=== PATIENT | female | born 1960 | race African-American/Black ===

== ENCOUNTER 2017-11-21 06:37 | Inpatient (IN) | payer OTHER ==
[2017-11-18 09:15] VITALS: BMI 38.4
[2017-11-21] MEDS ORDERED: CEFAZOLIN/Water 2 GM/20 ML SYRINGE ONE (07:57)
[2017-11-21 08:28] LABS: Hemoglobin 13.7 g/dL (12.0-16.0); Mean Corpuscular HGB CONC 33.7 g/dL (32.0-36.0); Mean Corpuscular Hemoglobin 29.6 pg (27.0-31.0); Mean Corpuscular Volume 87.8 fL (78.0-98.0); Mean Platelet Volume 7.8 fL (7.4-10.4); Platelet Count 312 thou/uL (130-400); RBC Distribution Width 12.2 % (11.5-14.5); Red Blood Cell (RBC) Count 4.63 mill/uL (4.20-5.40); White Blood Cell (WBC) Count 8.2 thou/uL (4.8-10.8)
[2017-11-21] MEDS ORDERED: Sodium Chloride 0.9% 10 ML ONE (08:39)
[2017-11-21] MEDS ORDERED: Fentanyl 100 MCG/2 ML VIAL ONE ×5 (08:43→10:57)
[2017-11-21 08:44] LABS: Anion Gap 12 mmol/L (10-20); BUN (Urea Nitrogen) 8 mg/dL (9.8-20.1); Calc. Creatinine Clearance 102 mL/min (70-130); Calcium 9.5 mg/dL (7.8-10.44); Carbon Dioxide 27 mmol/L (22-29); Chloride 101 mmol/L (98-107); Estimated GFR-MDRD 79; Glucose 110 mg/dL (70-105); Potassium 3.7 mmol/L (3.5-5.1); Sodium 136 mmol/L (136-145)
[2017-11-21] MEDS ORDERED: Ondansetron HCl/PF 4 MG/2 ML Vial IVP PRN ×2 (09:31→12:32)
[2017-11-21] MEDS ORDERED: Promethazine HCl 25 MG/ML VIAL IM PRN ×2 (09:31→12:29)
[2017-11-21] MEDS ORDERED: Promethazine HCl 25 MG/ML VIAL SLOW IVP PRN (09:31)
--- NOTE | 2017-11-21 10:39 | OP ---
DATE OF PROCEDURE: 11/21/2017 SURGEON: Jordon Steward M.D. ASSISSTANT: None. PROCEDURE: Exploration of spinal fusion C4-C6, anterior cervical discectomy C6-7, interbody arthrode sis, intravertebral biomechanical device, local morselized autograft, demineralized bone matrix, ante rior titanium instrumentation C6-C7. PROCEDURE IN DETAIL: The patient was brought to the operating room and intubated. She was positione d supine with the head in modest extension on a gel-filled donut. Incision was made in the right pre cervical area and dissecting medial to the sternocleidomastoid muscle, identified the previous hardwa re. We explored the C4-C6 region and it did seem to be fused solidly. We seem to have enough room a t the C6 body to perform the procedure without having to remove any hardware. We placed distraction across C6-7 and completely removed the intravertebral disk decompressing the neural elements. The benigno ny endplates were decorticated for the purpose of arthrodesis and appropriately-sized intravertebral biomechanical PEEK device was brought into the field, filled with demineralized bone matrix, local mo rselized autograft, and tapped into place securely at C6-7. Next, an anterior plate was brought into the field and secured to the C6 and C7 using two 14 mm screws at each level. It was challenging to get screws at the C6 level without interfering with the previous hardware, but ultimately, we did see m to achieve successful placement. The wound was then extensively irrigated, immaculate hemostasis w as secured, and the wound was closed in anatomic layers over a drain.
[2017-11-21] MEDS ORDERED: Promethazine HCl 12.5 MG SUPP PR PRN (12:29)
[2017-11-21] MEDS ORDERED: traMADol HCl 50 MG TAB PO PRN ×2 (12:29)
[2017-11-21] MEDS ORDERED: Mag-Al 1200 mg/1200 mg/30 ML UDCUP PO PRN (12:29)
[2017-11-21] MEDS ORDERED: HYDROcodone/Acetaminophen 10/325 mg Tablet PO PRN ×2 (12:29)
[2017-11-21] MEDS ORDERED: tiZANidine HCl 4 MG TAB PO PRN (12:29)
[2017-11-21] MEDS ORDERED: diphenhydrAMINE 25 MG CAP PO PRN (12:29)
[2017-11-21] MEDS ORDERED: Bisacodyl 10 MG SUPP PR PRN (12:29)
[2017-11-21] MEDS ORDERED: Promethazine 25 MG TAB PO PRN (12:29)
[2017-11-21] MEDS ORDERED: Milk Of Magnesia 30 ML UDCUP PO PRN (12:29)
[2017-11-21] MEDS ORDERED: Morphine 4 MG/ML Carpuject SLOW IVP PRN (12:29)
[2017-11-21] MEDS ORDERED: diphenhydrAMINE 50 MG/ML VIAL IVP PRN (12:29)
[2017-11-21] MEDS ORDERED: PROPOFOL 200 MG/20 ML VIAL ONE (14:39)
[2017-11-21] MEDS ORDERED: Ondansetron HCl/PF 4 MG/2 ML Vial ONE (14:39)
[2017-11-21] MEDS ORDERED: Glycopyrrolate 0.2 MG/ML 5 ML SYRINGE ONE (14:39)
[2017-11-21] MEDS ORDERED: Ketorolac Tromethamine 30 MG/ML VIAL ONE (14:39)
[2017-11-21] MEDS ORDERED: Dexamethasone 20 MG/5 ML VIAL ONE (14:39)
[2017-11-21] MEDS ORDERED: Lidocaine 1% PF 5 ML VIAL ONE (14:39)
[2017-11-21] MEDS ORDERED: Esmolol 100 MG/10 ML VIAL ONE (14:39)
[2017-11-21] MEDS: Sodium Chloride 0.9% 1,000 ML IV SCH (15:58)
[2017-11-21] MEDS ORDERED: CEFAZOLIN/Water 2 GM/20 ML SYRINGE SLOW IVP SCH (16:00)
[2017-11-21] MEDS ORDERED: Dextrose 50% Abboject 50 ML SYRINGE SLOW IVP PRN (16:33)
[2017-11-21] MEDS ORDERED: HumaLOG 300 UNITS/3 ML VIAL SC PRN (16:33)
[2017-11-21] MEDS ORDERED: Dextrose 5% in Water 1,000 ML IV PRN (16:33)
[2017-11-21] MEDS ORDERED: hydrALAZINE 20 MG/ML VIAL SLOW IVP PRN (16:33)
--- NOTE | 2017-11-21 16:48 | PDOC.PN ---
- Subjective Encounter Start Date: 11/21/17 Encounter Start Time: 16:47 Pt seen for management of medical comorbidities, including diabetes mellitus type 2. Denies nausea or vomiting. No fevers or chills. No abdo pain. Soreness of surgical site+ - Objective MAR Reviewed: Yes Vital Signs & Weight: Vital Signs (12 hours) Temp Pulse Resp BP Pulse Ox 11/21/17 15:46 97.4 F L 97 16 129/83 94 L 11/21/17 11:17 97.1 F L 83 16 124/89 97 Weight Weight 7.161 oz Result Diagrams: 11/21/17 08:13 11/21/17 08:13 Additional Labs: Labs reviewed by me Phys Exam - Physical Examination Constitutional: NAD HEENT: moist MMs Neck: supple Respiratory: clear to auscultation bilateral Cardiovascular: RRR Gastrointestinal: soft Neurological: moves all 4 limbs Psychiatric: normal affect Deviation from normal: dressing over surgical site, drain Dx/Plan (1) DM2 (diabetes mellitus, type 2) Status: Chronic Comment: resume Amaryl, start accuchecks and insulin scale, start ADA diet (2) HTN (hypertension) Code(s): I10 - ESSENTIAL (PRIMARY) HYPERTENSION Status: Chronic Comment: resume hydrochlorothiazide, monitor vital signs and titrate antihypertensives as needed. PRN IV hydralazine for blood pressure spikes. (3) Dyslipidemia Code(s): E78.5 - HYPERLIPIDEMIA, UNSPECIFIED Status: Chronic Comment: resume statin - Plan * . DVT prophylaxis and pain management per neurosurgery service. Review of Systems - Review of Systems Constitutional: negative: fever, chills, sweats, weakness, malaise Respiratory: negative: Cough, Shortness of Breath, SOB with Excertion, Pleuritic Pain, Wheezing - Medications/Allergies Allergies/Adverse Reactions: Allergies Allergy/AdvReac Type Severity Reaction Status Date / Time No Known Allergies Allergy Verified 11/18/17 09:15 Medications: Current Medications Hydrocodone Bitart/Acetaminophen ([place] 10/325) 1 tab PO Q4H PRN PRN Reason: PAIN (1-3) Hydrocodone Bitart/Acetaminophen ([place] 10/325) 2 tab PO Q4H PRN PRN Reason: PAIN (4-6) Last Admin: 11/21/17 15:56 Dose: 2 tab Al Hydroxide/Mg Hydroxide (Maalox) 30 ml PO Q4H PRN PRN Reason: Heartburn or Indigestion Bisacodyl (Dulcolax) 10 mg ME Q12H PRN PRN Reason: Constipation Cefazolin Sodium (Ancef) 2 gm SLOW IVP Q8H [facility] Stop: 11/22/17 00:01 Last Admin: 11/21/17 16:17 Dose: 2 gm Dextrose/Water (Dextrose 50%) 25 gm SLOW IVP PRN PRN PRN Reason: Hypoglycemia Diphenhydramine HCl (Benadryl) 25 mg PO Q6H PRN PRN Reason: Itching Diphenhydramine HCl (Benadryl) 25 mg IVP Q6H PRN PRN Reason: Itching Glucagon (Glucagon) 1 mg IM PRN PRN PRN Reason: Hypoglycemia Hydralazine HCl (Apresoline) 10 mg SLOW IVP Q6H PRN PRN Reason: SBP Greater Than 170 Sodium Chloride (Normal Saline 0.9%) 1,000 mls @ 75 mls/hr IV .[id number] [facility] Last Admin: 11/21/17 15:58 Dose: Not Given Dextrose/Water (D5w) 1,000 mls @ 0 mls/hr IV .Q0M PRN; As Directed PRN Reason: Hypoglycemia Insulin Human Lispro (Humalog) 0 units SC .MILD SLIDING SCALE PRN PRN Reason: Mild Correctional Scale Magnesium Hydroxide (Milk Of Magnesium) 30 ml PO Q12H PRN PRN Reason: Constipation Morphine Sulfate (Morphine) 2 mg SLOW IVP Q1H PRN PRN Reason: Moderate Breakthrough Pain Last Admin: 11/21/17 14:37 Dose: 2 mg Morphine Sulfate (Morphine) 4 mg SLOW IVP Q1H PRN PRN Reason: Severe Breakthrough Pain Ondansetron HCl (Zofran) 4 mg IVP Q8H PRN PRN Reason: Nausea/Vomiting Promethazine HCl (Phenergan) 12.5 mg IM Q4H PRN PRN Reason: Nausea/Vomiting Promethazine HCl (Phenergan) 12.5 mg PO Q4H PRN PRN Reason: Nausea/Vomiting Promethazine HCl (Phenergan Suppository) 12.5 mg ME Q4H PRN PRN Reason: Nausea/Vomiting Sodium Chloride (Flush - Normal Saline) 10 ml IVF Q12HR [facility] Sodium Chloride (Flush - Normal Saline) 10 ml IVF PRN PRN PRN Reason: Saline Flush Tizanidine HCl (Zanaflex) 4 mg PO Q6H PRN PRN Reason: MUSCLE SPASM Last Admin: 11/21/17 15:56 Dose: 4 mg Tramadol HCl (Ultram) 50 mg PO Q6H PRN PRN Reason: PAIN (1-3) Tramadol HCl (Ultram) 100 mg PO Q6H PRN PRN Reason: PAIN (4-6)
--- NOTE | 2017-11-21 19:54 | EKG ---
Test Reason : PREOP Blood Pressure : / mmHG Vent. Rate : 079 BPM Atrial Rate : 079 BPM P-R Int : 234 ms QRS Dur : 086 ms QT Int : 398 ms P-R-T Axes : 049 014 011 degrees QTc Int : 456 ms Sinus rhythm with 1st degree A-V block Nonspecific ST-T changes No previous ECGs available Confirmed by DR. Paula TORO ([id number]) on 11/21/2017 7:53:42 PM Referred By: MONICA Confirmed By:DR. Paula TORO
[2017-11-21] MEDS ORDERED: Pravastatin Sodium 20 MG TAB PO SCH (21:00)
[2017-11-21] MEDS: CEFAZOLIN/Water 2 GM/20 ML SYRINGE SLOW IVP SCH (23:46)
[2017-11-22] MEDS: Sodium Chloride 0.9% 1,000 ML IV SCH (00:16)
[2017-11-22] MEDS ORDERED: Hydrochlorothiazide 25 MG TAB PO SCH (09:00)
[2017-11-22] MEDS ORDERED: Glimepiride 4 MG TAB PO SCH (09:00)
[2017-11-22] MEDS ORDERED: buPROPion 75 MG TAB PO SCH (09:00)
[2017-11-22] MEDS: CEFAZOLIN/Water 2 GM/20 ML SYRINGE SLOW IVP SCH (09:35)
[2017-11-22 14:46] VITALS: BP 133/87; TEMP 97.4
== END 2017-11-22 14:40 | disposition home or self-care (01) | DRG 30 ==
LOC: SURG A 06:37 → SURG B 11:30 → EDSTATUS 12:30
PROVIDERS: ADMIT Neurological Surgery; ATTEND Neurological Surgery
PROC: 0RT30ZZ Resection of Cervical Vertebral Disc, Open Approach (ICD-10-PCS; principal; 2017-11-21)
PROC: 0RG10A0 Fusion of Cervical Vertebral Joint with Interbody Fusion Device, Anterior Approach, Anterior Column, Open Approach (ICD-10-PCS; 2017-11-21)
DX: M54.12 Radiculopathy, cervical region (principal); E11.9 Type 2 diabetes mellitus without complications; I10 Essential (primary) hypertension; E78.5 Hyperlipidemia, unspecified
CPT/HCPCS: 36415; 36416; 76001; 80048; 85027; 93005; 93010; A4216; C1713; C1776; G8978-GP-CL; G8979-GP-CK; J1100; J1885; J2001; J2270; J2405; J2704; J3010; J3490

== ENCOUNTER 2018-03-20 07:02 | Inpatient (IN) | payer OTHER ==
[2018-03-17 12:14] VITALS: BMI 36.2
[2018-03-20] MEDS ORDERED: CEFAZOLIN 2 GM/50 ML BAG ONE (08:14)
[2018-03-20 08:21] LABS: #Basophils 0.1 thou/uL (0.0-0.2); #Eosinphils 0.1 thou/uL (0.0-0.7); #Lymphocytes 2.9 thou/uL (1.20-3.40); #Monocytes 0.5 thou/uL (0.11-0.59); #Neutrophils 3.4 thou/uL (1.40-6.50); %Basophils 0.8 % (0.0-1.0); %Eosinophils 1.8 % (0.0-10.0); %Lymphocytes 41.7 % (21.0-51.0); %Monocytes 6.5 % (0.0-10.0); %Neutrophils 49.2 % (42.0-75.0); Hemoglobin 13.3 g/dL (12.0-16.0); Mean Corpuscular HGB CONC 31.6 g/dL (32.0-36.0); Mean Corpuscular Hemoglobin 28.1 pg (27.0-31.0); Mean Platelet Volume 9.1 fL (7.4-10.4); Platelet Count 287 thou/uL (130-400); RBC Distribution Width 13.6 % (11.5-14.5); Red Blood Cell (RBC) Count 4.73 mill/uL (4.20-5.40)
[2018-03-20 08:40] LABS: Anion Gap 13 mmol/L (10-20); BUN (Urea Nitrogen) 12 mg/dL (9.8-20.1); Calc. Creatinine Clearance 85 mL/min (70-130); Calcium 9.6 mg/dL (7.8-10.44); Carbon Dioxide 23 mmol/L (22-29); Chloride 107 mmol/L (98-107); Estimated GFR-MDRD 68; Glucose 111 mg/dL (70-105); Potassium 4.2 mmol/L (3.5-5.1); Sodium 139 mmol/L (136-145)
[2018-03-20] MEDS ORDERED: Sodium Chloride 0.9% 10 ML ONE (09:21)
[2018-03-20] MEDS ORDERED: Fentanyl 100 MCG/2 ML VIAL ONE ×6 (10:12→13:14)
[2018-03-20] MEDS ORDERED: Ondansetron HCl/PF 4 MG/2 ML Vial IVP PRN (11:20)
[2018-03-20] MEDS ORDERED: Promethazine HCl 25 MG/ML VIAL IM PRN ×2 (11:20→11:28)
[2018-03-20] MEDS ORDERED: HYDROmorphone 2 MG/ML VIAL SLOW IVP PRN (11:20)
[2018-03-20] MEDS ORDERED: Promethazine HCl 25 MG/ML VIAL SLOW IVP PRN (11:20)
[2018-03-20] MEDS ORDERED: Ondansetron PF 4 MG/2 ML Vial IM PRN (11:28)
[2018-03-20] MEDS ORDERED: Promethazine 25 MG TAB PO PRN (11:28)
[2018-03-20] MEDS ORDERED: Promethazine HCl 12.5 MG SUPP PR PRN (11:28)
[2018-03-20] MEDS ORDERED: Morphine 4 MG/ML VIAL SLOW IVP PRN (11:28)
[2018-03-20] MEDS ORDERED: Milk Of Magnesia 30 ML UDCUP PO PRN (11:28)
[2018-03-20] MEDS ORDERED: tiZANidine HCl 4 MG TAB PO PRN (11:28)
[2018-03-20] MEDS ORDERED: diphenhydrAMINE 25 MG CAP PO PRN (11:28)
[2018-03-20] MEDS ORDERED: Mag-Al 1200 mg/1200 mg/30 ML UDCUP PO PRN (11:28)
[2018-03-20] MEDS ORDERED: diphenhydrAMINE 50 MG/ML VIAL IVP PRN (11:28)
[2018-03-20] MEDS ORDERED: HYDROcodone/Acetaminophen 10/325 mg Tablet PO PRN ×2 (11:28)
[2018-03-20] MEDS ORDERED: hydrALAZINE 20 MG/ML VIAL SLOW IVP SCH (11:30)
[2018-03-20] MEDS ORDERED: HYDROmorphone 2 MG/ML VIAL ONE (11:47)
--- NOTE | 2018-03-20 13:00 | OP ---
DATE OF PROCEDURE: 03/20/2018 SURGEON: Jordon Steward M.D. CHILD WELFARE SPECIALIST: Bandar Houston PA-C. PROCEDURE: Left L5-S1 laminectomy, facetectomy, foraminotomy, interbody arthrodesis, intravertebral biomechanical device, local morselized autograft, demineralized bone matrix, posterior lateral arthro desis, and pedicle screw instrumentation, left L5-S1. PROCEDURE IN DETAIL: The patient was brought into the room and intubated. She was rolled in a prone position on gel-filled chest rolls. Incision made exposing L5 and S1 bilaterally and our level was confirmed by x-ray. We performed left L5-S1 laminectomy, facetectomy, and foraminotomy, completely d ecompressed left L5 and left S1. The disk itself was incised and debrided and the bony endplates dec orticated for the purpose of arthrodesis. An appropriately-sized intravertebral biomechanical PEEK d evice was brought into the field, filled with demineralized bone matrix, local morselized autograft, and tapped into place securely at L5-S1. Next, pedicle screws were placed on the left at L5 and S1 u sing lateral fluoroscopic guidance. A moisés was secured between the screws, connected by nuts, which w ere final tightened. The wound was then extensively irrigated, immaculate hemostasis was secured. A combination of demineralized bone matrix, local morselized autograft was laid over the right laminar and posterolateral surfaces for the purpose of arthrodesis. Vancomycin powder was applied and the w ound was then closed in anatomic layers.
[2018-03-20] MEDS: Ketorolac Tromethamine 30 MG/ML VIAL IVP SCH ×2 (14:51→18:04)
[2018-03-20] MEDS: Sodium Chloride 0.9% 1,000 ML IV SCH ×2 (14:51→20:18)
--- NOTE | 2018-03-20 15:00 | EKG ---
Test Reason : PREOP Blood Pressure : / mmHG Vent. Rate : 090 BPM Atrial Rate : 090 BPM P-R Int : 204 ms QRS Dur : 082 ms QT Int : 386 ms P-R-T Axes : 056 023 011 degrees QTc Int : 472 ms Normal sinus rhythm Prolonged QT Abnormal ECG Confirmed by LORNA CALLAHAN ([id number]) on 03/20/2018 2:59:36 PM Referred By: MONICA Confirmed By:LORNA CALLAHAN
[2018-03-20] MEDS ORDERED: Dextrose 50% Abboject 50 ML SYRINGE SLOW IVP PRN (15:51)
[2018-03-20] MEDS ORDERED: HumaLOG 300 UNITS/3 ML VIAL SC PRN (15:51)
[2018-03-20] MEDS ORDERED: Dextrose 5% in Water 1,000 ML IV PRN (15:51)
[2018-03-20] MEDS ORDERED: hydrOXYzine 25 MG TAB PO PRN (15:53)
--- NOTE | 2018-03-20 17:02 | PDOC.PN ---
- Subjective Encounter Start Date: 03/20/18 Encounter Start Time: 17:02 Pt seen for management of medical comorbidities including diabetes mellitus type 2. Denies chest pain, shortness of breath, fevers or chills. - Objective Vital Signs & Weight: Vital Signs (12 hours) Temp Pulse Resp BP Pulse Ox 03/20/18 16:14 92 18 135/82 94 L 03/20/18 13:30 97.5 F L 84 18 129/87 93 L Weight Weight 198 lb I&O: 03/19/18 03/20/18 03/21/18 06:59 06:59 06:59 Intake Total 350 Balance 350 Result Diagrams: 03/20/18 08:09 03/20/18 08:09 Phys Exam - Physical Examination Obese HEENT: moist MMs Neck: supple Respiratory: clear to auscultation bilateral Cardiovascular: RRR Gastrointestinal: soft Neurological: moves all 4 limbs Psychiatric: normal affect Dx/Plan (1) DM2 (diabetes mellitus, type 2) Status: Chronic Comment: start accuchecks and insulin scale, start ADA diet (2) HTN (hypertension) Code(s): I10 - ESSENTIAL (PRIMARY) HYPERTENSION Status: Chronic Comment: Monitor vital signs and titrate antihypertensives as needed. Add PRN IV hydralazine for blood pressure spikes. (3) Dyslipidemia Code(s): E78.5 - HYPERLIPIDEMIA, UNSPECIFIED Status: Chronic Comment: resume statin - Plan * . s/p lumbar spine surgery. DVT prophylaxis and pain management per neuosurgery service. Review of Systems - Review of Systems Cardiovascular: negative: chest pain, palpitations, orthopnea, paroxysmal nocturnal dyspnea, edema, light headedness Gastrointestinal: negative: Nausea, Vomiting, Abdominal Pain, Diarrhea, Constipation, Melena, Hematochezia - Medications/Allergies Allergies/Adverse Reactions: Allergies Allergy/AdvReac Type Severity Reaction Status Date / Time No Known Allergies Allergy Verified 03/17/18 12:14 Medications: Current Medications Hydrocodone Bitart/Acetaminophen ([place] 10/325) 1 tab PO Q4H PRN PRN Reason: PAIN (1-3) Hydrocodone Bitart/Acetaminophen ([place] 10/325) 2 tab PO Q4H PRN PRN Reason: PAIN (4-6) Al Hydroxide/Mg Hydroxide (Maalox) 30 ml PO Q4H PRN PRN Reason: Heartburn or Indigestion Bupropion HCl (Wellbutrin) 150 mg PO QAM [facility] Dextrose/Water (Dextrose 50%) 25 gm SLOW IVP PRN PRN PRN Reason: Hypoglycemia Diphenhydramine HCl (Benadryl) 25 mg PO Q6H PRN PRN Reason: Itching Diphenhydramine HCl (Benadryl) 25 mg IVP Q6H PRN PRN Reason: Itching Divalproex Sodium (Depakote Er) 750 mg PO HS [facility] Estradiol (Estrace) 2 mg PO QAM [facility] Glucagon (Glucagon) 1 mg IM PRN PRN PRN Reason: Hypoglycemia Hydralazine HCl (Apresoline) 10 mg SLOW IVP Q15MIN [facility] Hydroxyzine HCl (Atarax) 75 mg PO HS PRN PRN Reason: Itching Sodium Chloride (Normal Saline 0.9%) 1,000 mls @ 75 mls/hr IV .[id number] [facility] Last Admin: 03/20/18 14:51 Dose: Not Given Cefazolin Sodium/Dextrose 2 gm (/ Device) 50 mls @ 100 mls/hr IVPB 0200,1000, 1800 [facility] Stop: 03/21/18 02:29 Dextrose/Water (D5w) 1,000 mls @ 0 mls/hr IV .Q0M PRN PRN Reason: Hypoglycemia Insulin Human Lispro (Humalog) 0 units SC .MILD SLIDING SCALE PRN PRN Reason: Mild Correctional Scale Ketorolac Tromethamine (Toradol) 15 mg IVP Q6HR [facility] Stop: 03/22/18 06:01 Last Admin: 03/20/18 14:51 Dose: Not Given Magnesium Hydroxide (Milk Of Magnesium) 30 ml PO Q12H PRN PRN Reason: Constipation Morphine Sulfate (Morphine) 2 mg SLOW IVP Q1H PRN PRN Reason: Moderate Breakthrough Pain Morphine Sulfate (Morphine) 4 mg SLOW IVP Q1H PRN PRN Reason: SEVERE BREAKTHROUGH PAIN Ondansetron HCl (Zofran) 4 mg IM Q24H PRN PRN Reason: Nausea/Vomiting Last Admin: 03/20/18 15:49 Dose: 4 mg Pantoprazole Sodium (Protonix) 40 mg PO DAILY [facility] Pravastatin Sodium (Pravachol) 20 mg PO HS [facility] Promethazine HCl (Phenergan) 12.5 mg IM Q4H PRN PRN Reason: Nausea/Vomiting Promethazine HCl (Phenergan) 12.5 mg PO Q4H PRN PRN Reason: Nausea/Vomiting Promethazine HCl (Phenergan Suppository) 12.5 mg CA Q4H PRN PRN Reason: Nausea/Vomiting Quetiapine Fumarate (Seroquel) 150 mg PO HS [facility] Sodium Chloride (Flush - Normal Saline) 10 ml IVF PRN PRN PRN Reason: Saline Flush Tizanidine HCl (Zanaflex) 4 mg PO Q6H PRN PRN Reason: MUSCLE SPASM
[2018-03-20] MEDS ORDERED: Lidocaine 1% PF 5 ML VIAL ONE (17:10)
[2018-03-20] MEDS ORDERED: PROPOFOL 200 MG/20 ML VIAL ONE (17:10)
[2018-03-20] MEDS ORDERED: Dexamethasone 20 MG/5 ML VIAL ONE (17:10)
[2018-03-20] MEDS ORDERED: Ketorolac Tromethamine 30 MG/ML VIAL ONE (17:10)
[2018-03-20] MEDS ORDERED: Labetalol HCl 100 MG/20 ML VIAL ONE (17:10)
[2018-03-20] MEDS ORDERED: Ondansetron PF 4 MG/2 ML Vial ONE (17:10)
[2018-03-20] MEDS ORDERED: Glycopyrrolate 0.2 MG/ML 5 ML SYRINGE ONE (17:10)
[2018-03-20] MEDS: CEFAZOLIN 2 GM/50 ML-DEXTROSE 2 GM in Premix Bag 1 BAG IVPB SCH (18:03)
[2018-03-20] MEDS ORDERED: Pravastatin Sodium 20 MG TAB PO SCH (21:00)
[2018-03-21] MEDS: Ketorolac Tromethamine 30 MG/ML VIAL IVP SCH ×2 (01:00→05:07)
[2018-03-21] MEDS: CEFAZOLIN 2 GM/50 ML-DEXTROSE 2 GM in Premix Bag 1 BAG IVPB SCH (01:03)
[2018-03-21] MEDS ORDERED: buPROPion 75 MG TAB PO SCH (09:00)
[2018-03-21] MEDS ORDERED: Estradiol 1 MG TAB PO SCH (09:00)
[2018-03-21] MEDS ORDERED: Pantoprazole 40 MG GRANULES PACKET PO SCH (09:00)
[2018-03-21 11:15] VITALS: BP 157/90; TEMP 97.5
--- NOTE | 2018-03-21 13:08 | DIS-2 ---
DATE OF ADMISSION: 03/20/2018 DATE OF DISCHARGE: 03/21/2018 ATTENDING PHYSICIAN: Jordon Steward M.D. HOSPITAL COURSE: Patient is a 57-year-old -[place] female status post L5-S1 diskectomy and fusion. Postoperatively, she was admitted to the med/surg floor where her pain was well controlled with p.o. medication, she was tolerating a regular diet, and she was voiding appropriately. She has been ambulating without difficulty throughout the hallway. I am seeing her at the bedside this morning. She has no complaints at this time. She reports she is ready to go home. She is awake, alert, no acute distress. Free active range of motion of all extremities. There is a small amount of dark red blood on the dressing, but no active drainage. No focal motor deficits. We will plan to dismiss the patient to home. I have discussed home care precautions and will follow up with the patient in the office in 2 weeks with x- rays. She has been provided for her scripts for hydrocodone, muscle relaxer and an antibiotic. [place]
== END 2018-03-21 11:05 | disposition home or self-care (01) | DRG 460 ==
LOC: SURG A 07:02 → SURG B 13:48
PROVIDERS: ADMIT Neurological Surgery; ATTEND Neurological Surgery
PROC: 0SG30AJ Fusion of Lumbosacral Joint with Interbody Fusion Device, Posterior Approach, Anterior Column, Open Approach (ICD-10-PCS; principal; 2018-03-20)
DX: M43.16 Spondylolisthesis, lumbar region (principal); M51.37 Other intervertebral disc degeneration, lumbosacral region; E11.9 Type 2 diabetes mellitus without complications; I10 Essential (primary) hypertension; E78.5 Hyperlipidemia, unspecified
CPT/HCPCS: 36415; 36416; 76001; 80048; 85025; 90471; 90686; 93005; 93010; 96374; C1713; C1768; G0008; G8978-GP-CJ; G8979-GP-CJ; G8980-GP-CJ; J1100; J1170; J1200; J1885; J2001; J2270; J2405; J2704; J3010; J3370; J3490

== ENCOUNTER 2019-04-09 09:03 | Inpatient (IN) | payer OTHER ==
[2019-05-25 09:52] VITALS: BMI 31.1
[2019-05-28] MEDS ORDERED: Fentanyl 100 MCG/2 ML VIAL ONE ×5 (06:18→09:21)
[2019-05-28] MEDS ORDERED: Sodium Chloride 0.9% 10 ML ONE (06:34)
[2019-05-28 06:49] LABS: #Basophils 0.1 thou/uL (0.0-0.2); #Eosinphils 0.2 thou/uL (0.0-0.7); #Lymphocytes 3.8 thou/uL (1.20-3.40); #Monocytes 0.6 thou/uL (0.11-0.59); #Neutrophils 5.8 thou/uL (1.40-6.50); %Basophils 0.9 % (0.0-1.0); %Eosinophils 1.9 % (0.0-10.0); %Monocytes 5.5 % (0.0-10.0); %Neutrophils 55.7 % (42.0-75.0); Hemoglobin 12.7 g/dL (12.0-16.0); Mean Corpuscular HGB CONC 33.5 g/dL (32.0-36.0); Mean Corpuscular Hemoglobin 30.3 pg (27.0-31.0); Mean Corpuscular Volume 90.4 fL (78.0-98.0); Mean Platelet Volume 9.4 fL (7.4-10.4); Platelet Count 297 thou/uL (130-400); RBC Distribution Width 13.4 % (11.5-14.5); Red Blood Cell (RBC) Count 4.19 mill/uL (4.20-5.40); White Blood Cell (WBC) Count 10.4 thou/uL (4.8-10.8)
[2019-05-28 07:05] LABS: Potassium 3.9 mmol/L (3.5-5.1); Sodium 139 mmol/L (136-145)
[2019-05-28 07:06] LABS: Anion Gap 14 mmol/L (10-20); BUN (Urea Nitrogen) 8 mg/dL (9.8-20.1); Calc. Creatinine Clearance 92 mL/min (70-130); Calcium 9.2 mg/dL (7.8-10.44); Carbon Dioxide 23 mmol/L (23-31); Chloride 106 mmol/L (98-107); Estimated GFR-MDRD Greater than 90; Glucose 98 mg/dL (80-115)
[2019-05-28] MEDS ORDERED: Ondansetron HCl/PF 4 MG/2 ML Vial IVP PRN (07:57)
[2019-05-28] MEDS ORDERED: Promethazine HCl 25 MG/ML VIAL IM PRN ×2 (07:57→10:45)
[2019-05-28] MEDS ORDERED: Promethazine HCl 25 MG/ML VIAL SLOW IVP PRN (07:57)
[2019-05-28] MEDS ORDERED: Promethazine HCl 25 MG/ML VIAL ONE (08:39)
[2019-05-28] MEDS ORDERED: Labetalol HCl 100 MG/20 ML VIAL ONE (09:02)
[2019-05-28] MEDS ORDERED: Ketorolac Tromethamine 30 MG/ML VIAL ONE (10:16)
[2019-05-28] MEDS ORDERED: Rocuronium Bromide 10 MG/ML (10ML VIAL) ONE (10:16)
[2019-05-28] MEDS ORDERED: Ondansetron PF 4 MG/2 ML Vial ONE (10:16)
[2019-05-28] MEDS ORDERED: PROPOFOL 200 MG/20 ML VIAL ONE (10:16)
[2019-05-28] MEDS ORDERED: Glycopyrrolate 0.2 MG/ML 5 ML SYRINGE ONE (10:16)
[2019-05-28] MEDS ORDERED: Lidocaine 1% PF 5 ML VIAL ONE (10:16)
[2019-05-28] MEDS ORDERED: PHENYLEPHRINE-NS 100 MCG/ML 10 ML SYRINGE ONE (10:16)
[2019-05-28] MEDS ORDERED: Bisacodyl 10 MG SUPP PR PRN (10:45)
[2019-05-28] MEDS ORDERED: Promethazine 25 MG TAB PO PRN (10:45)
[2019-05-28] MEDS ORDERED: diphenhydrAMINE 50 MG/ML VIAL IVP PRN (10:45)
[2019-05-28] MEDS ORDERED: HYDROcodone/Acetaminophen 10/325 mg Tablet PO PRN (10:45)
[2019-05-28] MEDS ORDERED: traMADol HCl 50 MG TAB PO PRN (10:45)
[2019-05-28] MEDS ORDERED: Milk Of Magnesia 30 ML UDCUP PO PRN (10:45)
[2019-05-28] MEDS ORDERED: diphenhydrAMINE 25 MG CAP PO PRN (10:45)
[2019-05-28] MEDS ORDERED: Promethazine HCl 12.5 MG SUPP PR PRN (10:45)
[2019-05-28] MEDS ORDERED: Morphine 4 MG/ML VIAL SLOW IVP PRN (10:45)
[2019-05-28] MEDS ORDERED: Mag-Al 1200 mg/1200 mg/30 ML UDCUP PO PRN (10:45)
[2019-05-28] MEDS ORDERED: Ondansetron PF 4 MG/2 ML Vial IVP PRN (10:46)
[2019-05-28] MEDS ORDERED: Morphine 2 MG/ML SYRINGE SLOW IVP PRN (11:00)
[2019-05-28] MEDS ORDERED: Cyclobenzaprine 10 MG TAB PO PRN (11:39)
[2019-05-28] MEDS ORDERED: hydrOXYzine 25 MG TAB PO PRN (11:40)
[2019-05-28] MEDS: Sodium Chloride 0.9% 1,000 ML IV SCH ×2 (12:04→20:52)
--- NOTE | 2019-05-28 12:09 | OP ---
DATE OF PROCEDURE: 05/28/2019 ELEVATOR ATTENDANT: Mary France PA-C. PROCEDURE PERFORMED: Exploration of spinal fusion, L5-S1, removal of hardware, L5-S1 and L5-S1 posterolateral arthrodesis, pedicle screw instrumentation, BMP and cancellous bone chips. DESCRIPTION OF PROCEDURE: The patient was brought to the operating room and intubated. She was rolled in a prone position on gel-filled chest rolls. An incision was made exposing L5 and S1 and the level was confirmed by x-ray. We identified the left-sided pedicle screws, removed the nuts and moisés and found the left S1 pedicle screw to be loose as anticipated. This was removed and then replaced with a larger diameter and longer left S1 screw. The fusion was explored and was not felt to be solid. We placed right-sided L5 and S1 pedicle screws using lateral fluoroscopic guidance, connected these by moisés, secured by nuts, which were final tightened. The bony surfaces were then decorticated for the purpose of arthrodesis and a combination of BMP and cancellous bone chips was laid over the right lamina and posterolateral surfaces for the purpose of arthrodesis. MAC hemostasis was secured. Vancomycin powder was applied and the wound was closed in anatomic layers. Job ID: [id number]
[2019-05-28] MEDS: HYDROcodone/Acetaminophen 10/325 mg Tablet PO PRN ×2 (13:08→20:58)
[2019-05-28] MEDS: CEFAZOLIN 2 GM in Premix Bag 1 BAG IVPB SCH ×2 (14:50→23:47)
[2019-05-28] MEDS: tiZANidine HCl 4 MG TAB PO PRN ×2 (15:22→23:53)
[2019-05-28] MEDS: traMADol HCl 50 MG TAB PO PRN ×2 (17:53→23:53)
[2019-05-29] MEDS: HYDROcodone/Acetaminophen 10/325 mg Tablet PO PRN ×2 (03:55→08:54)
[2019-05-29] MEDS: Sodium Chloride 0.9% 1,000 ML IV SCH (05:25)
[2019-05-29] MEDS: traMADol HCl 50 MG TAB PO PRN ×2 (05:35→12:16)
[2019-05-29] MEDS ORDERED: Glimepiride 4 MG TAB PO SCH (07:30)
[2019-05-29] MEDS ORDERED: metFORMIN 500 MG TAB PO SCH (08:00)
--- NOTE | 2019-05-29 08:47 | PDOC.HOSPP ---
- Subjective Encounter Date: 05/28/19 Encounter Time: 15:00 Subjective: pt up in in bed complains of pain to her lower back. - Objective Vital Signs & Weight: Vital Signs (12 hours) Temp Pulse Resp BP Pulse Ox 05/29/19 07:31 97.9 F 90 18 104/71 91 L 05/29/19 03:25 99.6 F 94 16 130/87 93 L 05/29/19 00:07 99.3 F 93 16 105/71 93 L Weight Weight 170 lb I&O: 05/28/19 05/29/19 05/30/19 06:59 06:59 06:59 Intake Total 1860 Balance 1860 Result Diagrams: 05/28/19 06:40 05/28/19 06:40 Hospitalist ROS - Review of Systems Cardiovascular: denies: chest pain, palpitations, orthopnea, paroxysmal noc. dyspnea, edema, light headedness, other Gastrointestinal: denies: nausea, vomiting, abdominal pain, diarrhea, constipation, melena, hematochezia, other Musculoskeletal: reports: back pain - Medication Medications: Active Medications Generic Name Dose Route Start Last Admin Trade Name Freq PRN Reason Stop Dose Admin Hydrocodone Bitart/Acetaminophen 2 tab 05/28/19 10:45 05/29/19 03:55 [place] 10/325 PO 2 tab Q4H PRN Administration PAIN (4-6) Cyclobenzaprine HCl 10 mg 05/28/19 11:39 05/28/19 21:09 Flexeril PO 10 mg HS PRN Administration Muscle Spasm Divalproex Sodium 500 mg 05/28/19 21:00 05/28/19 20:53 Depakote Er PO 500 mg BID [facility] Administration Sodium Chloride 1,000 mls @ 75 mls/hr 05/28/19 10:45 05/29/19 05:25 Normal Saline 0.9% IV 1,000 mls .[id number] [facility] Administration Morphine Sulfate 2 mg 05/28/19 11:00 05/28/19 11:21 Morphine SLOW IVP 2 mg Q1H PRN Administration Moderate Breakthrough Pain Sodium Chloride 10 ml 05/28/19 21:00 05/28/19 21:08 Flush - Normal Saline IVF Not Given Q12HR [facility] Tizanidine HCl 4 mg 05/28/19 10:45 05/28/19 23:53 Zanaflex PO 4 mg Q6H PRN Administration MUSCLE SPASM Tramadol HCl 100 mg 05/28/19 10:45 05/29/19 05:35 Ultram PO 100 mg Q6H PRN Administration PAIN (4-6) - Exam Neck: negative: supple, symmetric, no JVD, no thyromegaly, no lymphadenopathy, no carotid bruit, JVD Heart: negative: RRR, no murmur, no gallops, no rubs, normal peripheral pulses, irregular, diminshed peripheral pulses, murmur present, II/IV, III/IV Respiratory: negative: CTAB, no wheezes, no rales, no ronchi, normal chest expansion, no tachypnea, normal percussion, rales, rhonchi, tachypneic, wheezes Hosp A/P (1) DM2 (diabetes mellitus, type 2) Status: Chronic (2) Dyslipidemia Code(s): E78.5 - HYPERLIPIDEMIA, UNSPECIFIED Status: Chronic (3) HTN (hypertension) Code(s): I10 - ESSENTIAL (PRIMARY) HYPERTENSION Status: Chronic (4) Schizophrenia Code(s): F20.9 - SCHIZOPHRENIA, UNSPECIFIED Status: Chronic (5) Back pain with history of spinal surgery Code(s): M54.9 - DORSALGIA, UNSPECIFIED Status: Acute - Plan pt underwent exploration of spinal fusion on 05/28. will continue home meds. ekg NSR. Labs done outpatient appear stable. will monitor.
[2019-05-29] MEDS ORDERED: buPROPion HCl 100 MG TAB PO SCH (09:00)
[2019-05-29] MEDS ORDERED: Estradiol 1 MG TAB PO SCH (09:00)
[2019-05-29] MEDS ORDERED: Lisinopril 10 MG TAB PO SCH (09:00)
--- NOTE | 2019-05-29 10:18 | DIS ---
DATE OF ADMISSION: 05/28/2019 DATE OF DISCHARGE: 05/29/2019 HOSPITAL COURSE: The patient is a 59-year-old female known to us from prior L5-S1 decompression and fusion, who had progressive back pain and was found to have loosening of the left S1 screw. She underwent revision of her L5-S1 fusion with replacement of the left S1 screw and contralateral hardware placement with BMP on 05/28/2018. Following the surgery, she was transitioned to the Med/Surg floor, where her pain has been well controlled with p.o. medications, she has been tolerating regular diet, she has been voiding appropriately. She has been ambulating easily with a walker. She did have some drainage from her incision, requiring dressing change. However, upon examining the incision on postoperative day #1, there is no active drainage. Appears to be clean, dry, and intact. The patient is otherwise doing well and feels ready to transition to home at this time. I have discussed home care precautions. We will follow up with the patient in approximately 2 weeks. I have provided with scripts for [place], Zanaflex, and Keflex. Job ID: [id number]
--- NOTE | 2019-05-29 11:04 | EKG ---
Test Reason : PREOP Blood Pressure : / mmHG Vent. Rate : 083 BPM Atrial Rate : 083 BPM P-R Int : 196 ms QRS Dur : 086 ms QT Int : 394 ms P-R-T Axes : 054 039 035 degrees QTc Int : 462 ms Normal sinus rhythm Normal ECG When compared with ECG of 20-MAR-2018 08:21, No significant change was found Confirmed by DR. Fuad SEARS ([id number]) on 05/29/2019 11:03:44 AM Referred By: MONICA Confirmed By:DR. Fuad SEARS
[2019-05-29 11:42] VITALS: BP 97/66; TEMP 98.5
== END 2019-05-29 13:45 | disposition home or self-care (01) | DRG 460 ==
LOC: SURG A 05-28 05:47
PROVIDERS: ADMIT Neurological Surgery; ATTEND Neurological Surgery
PROC: 0SG3071 Fusion of Lumbosacral Joint with Autologous Tissue Substitute, Posterior Approach, Posterior Column, Open Approach (ICD-10-PCS; principal; 2019-05-28)
PROC: 0QP004Z Removal of Internal Fixation Device from Lumbar Vertebra, Open Approach (ICD-10-PCS; 2019-05-28)
PROC: 0QP104Z Removal of Internal Fixation Device from Sacrum, Open Approach (ICD-10-PCS; 2019-05-28)
PROC: 3E0U0GB Introduction of Recombinant Bone Morphogenetic Protein into Joints, Open Approach (ICD-10-PCS; 2019-05-28)
DX: T84.226A Displacement of internal fixation device of vertebrae, initial encounter (principal); M54.16 Radiculopathy, lumbar region; Y83.1 Surgical operation with implant of artificial internal device as the cause of abnormal reaction of the patient, or of later complication, without mention of misadventure at the time of the procedure; E11.9 Type 2 diabetes mellitus without complications; I10 Essential (primary) hypertension; E78.5 Hyperlipidemia, unspecified; F20.9 Schizophrenia, unspecified; Z79.899 Other long term (current) drug therapy; Z79.84 Long term (current) use of oral hypoglycemic drugs
CPT/HCPCS: 36415; 76000; 80048; 85025; 93005; 93010; C1713; J0690; J1885; J2001; J2270; J2405; J2550; J2704; J3010; J3370; J3490; Q0169

== ENCOUNTER 2019-06-13 09:57 | Outpatient (CLI) | payer OTHER ==
--- NOTE | 2019-06-13 11:19 | RAD ---
LUMBAR SPINE TWO VIEWS: HISTORY: Lumbar radiculopathy. Followup to prior surgery. Muscle spasms right leg. COMPARISON: No prior imaging. FINDINGS: Recent postoperative laminectomy and pedicle screw placement changes of the lower lumbar spine. Very mild grade 1 anterolisthesis of L5 on S1. No prior imaging available. IMPRESSION: 1. Recent postoperative changes at L5-S1 with very mild grade 1 anterolisthesis. 2. No significant acute process. 3. Mild spondylosis. POS: OFF
== END 2019-06-13 09:58 | disposition home or self-care (01) ==
LOC: TBSIIMAG 09:57
PROVIDERS: ATTEND Neurological Surgery
DX: M47.26 Other spondylosis with radiculopathy, lumbar region (principal); M43.17 Spondylolisthesis, lumbosacral region; Z98.890 Other specified postprocedural states
CPT/HCPCS: 72100